=== PATIENT | female | born 1990 | race American Indian/Alaskan Native ===

== ENCOUNTER 2017-08-15 17:51 | Emergency (ER) | payer OTHER ==
[2017-08-15 19:09] LABS: Basophils % (Auto) 0.3 % (0.0-1.8); Eosinophils % (Auto) 0.1 % (0.0-4.3); Hematocrit 35.3 % (30.3-42.9); Hemoglobin 11.3 gm/dl (10.1-14.3); Lymphocytes # (Auto) 1.7 K/mm3 (1.2-5.4); Lymphocytes % (Auto) 18.4 % (13.4-35.0); Mean Corpuscular HGB Conc 32 % (30-34); Mean Corpuscular Hemoglobin 26 pg (28-32); Mean Corpuscular Volume 81 fl (79-97); Monocytes # (Auto) 0.8 K/mm3 (0.0-0.8); Monocytes % (Auto) 8.9 % (0.0-7.3); Platelet Count 319 K/mm3 (140-440); Red Blood Count 4.35 M/mm3 (3.65-5.03); Red Cell Distribution Width 15.9 % (13.2-15.2)
[2017-08-15 19:37] LABS: BUN/Creatinine Ratio 8; Blood Urea Nitrogen 4 mg/dL (7-17); Calcium 9.5 mg/dL (8.4-10.2); Hemolysis Index 3
--- NOTE | 2017-08-15 20:13 | Emergency Department Report ---
HPI - General Chief Complaint: Skin/Abscess/Foreign Body Time Seen by Provider: 08/15/17 19:59 - HPI HPI: Patient reports that she had 3 tooth pulled from her right lower back tooth. She reports that she had facial swelling right jaw. She says swelling is going down into her neck. Patient denies any difficulty with swallowing, any wheezing , stridor is there or throat pain. Her pain is another 10 to right facial area. She said is throbbing. She has not called at approximately she said that they're not open on the weekend. Patient says she took antibiotic before she had a procedure and she had no swelling before procedure. She said postprocedure she was placed on amoxicillin and hydrocodone which she brought to the hospital with her. She said the pain is getting worse and swelling in his increase. ED Past Medical Hx - Past Medical History Previous Medical History?: Yes Additional medical history: Vaginal delivery x 2. anemia - Surgical History Past Surgical History?: Yes Hx Cholecystectomy: Yes Additional Surgical History: tonsillectomy. tubal ligation - Family History Family history: no significant - Social History Smoking Status: Never Smoker Substance Use Type: None - Medications Home Medications: Home Medications Medication Instructions Recorded Confirmed Last Taken Type Ciprofloxacin HCl [Ciprofloxacin 500 mg PO Q12HR #14 tab 05/20/15 Unknown Rx TAB] Clotrimazole [Jock Itch] 15 gm TP TID #1 tube 05/20/15 Unknown Rx Fluconazole [Diflucan TAB] 150 mg PO ONCE #1 tablet 05/20/15 Unknown Rx ED Review of Systems ROS: Stated complaint: FACIAL SWELLING Other details as noted in HPI Comment: All other systems reviewed and negative Constitutional: no symptoms reported ENT: dental pain, other (right facial swelling). denies: ear pain, throat pain , congestion Respiratory: no symptoms reported Cardiovascular: denies: chest pain, palpitations, dyspnea on exertion, orthopnea , edema, syncope, paroxysmal nocturnal dyspnea Gastrointestinal: denies: abdominal pain, nausea, vomiting, diarrhea, constipation, hematemesis, melena, hematochezia Musculoskeletal: denies: back pain, arthralgia Skin: denies: rash Neurological: denies: headache, abnormal gait, vertigo Physical Exam - Physical Exam Vital Signs: Vital Signs 08/15/17 17:58 Temperature 98.6 F Pulse Rate 100 H Respiratory 18 Rate Blood Pressure 135/73 O2 Sat by Pulse 98 Oximetry Vital Signs 08/15/17 08/15/17 17:58 23:39 Temperature 98.6 F 99.2 F Pulse Rate 100 H 96 H Respiratory 18 16 Rate Blood Pressure 135/73 Blood Pressure 122/67 [Left] O2 Sat by Pulse 98 100 Oximetry General: This is a 27-year-old female well-nourished well-developed in no acute distress. Physical Exam: Head: Normocephalic atraumatic Ears:BIateral TM pearly cornejo ,Tyshawn EAC with normal exam. No mastoid bone tenderness. Mouth: Moist, no pharyngeal erythema or exudate . No tonsillar erythema or exudate. UVULA midline and oral airways patent. No peritonsillar abscess. Positive abscess right lower tooth. Positive facial swelling. Swelling from mandible to right side of neck. Tender to palpate without erythema. No fluctuance. Miss into to right upper and lower with dental tenderness. Neck: Nontender to palpate, supple, normal range of motion. No adenopathy. No c- spine tenderness. Positive tenderness to right side of neck with swelling. Nose: Bilateral nasal mucosa normal. Maxillary and frontal sinuses non- tender to palpate. Eyes: Sclerae and conjunctiva without injection. Bilateral pupils equal and reactive to light. Bilateral lids are normal. Normal accommodation.BEOMI Lungs: Clear to auscultate bilaterally, no rhonchi wheezes or rales. Normal work of breathing and no chest wall tenderness Abdomen: Soft, nontender to palpate in all quadrants. No guarding or rebound tenderness. Positive bowel sounds in all quadrants CV: S1, S2. Regular rate and rhythm negative murmur. Capillary refill is less than 3 seconds Skin: Clean dry and intact, no rashes or lesions Psych: Normal mood and behavior ED Course Vital Signs 08/15/17 17:58 Temperature 98.6 F Pulse Rate 100 H Respiratory 18 Rate Blood Pressure 135/73 O2 Sat by Pulse 98 Oximetry Vital Signs 08/15/17 08/15/17 17:58 23:39 Temperature 98.6 F 99.2 F Pulse Rate 100 H 96 H Respiratory 18 16 Rate Blood Pressure 135/73 Blood Pressure 122/67 [Left] O2 Sat by Pulse 98 100 Oximetry - Reevaluation(s) Reevaluation #1: 08/16/17 00:27 Patient was given IV Dilaudid 0.5 mL and Zofran 4 mg IV for pain management. I spoke with Dr. Anthony who is the attending physician after CT scan of facial bones with IV contrast obtained and showed patient with abscess to right mandible area with fracture mandible. It was decided the patient will be transferred. I spoke with OMFS service at [facility] and Dr. Fine you ask agreed to accept patient. Patient awaiting ambulance to be transferred to [facility]. She is aware of transfer and agreed to be transferred. Reevaluation #2: 08/16/17 01:33 Patient is stable, pain is controlled. Oral airways patent and still awaiting in transfer to [facility] Reevaluation #3: 08/16/17 06:22 Patient remained stable and in no acute distress. Reevaluation #4: 08/16/17 07:09 Patient on route to [facility] via ambulance. ED Medical Decision Making - Lab Data Result diagrams: 08/15/17 18:52 08/15/17 18:52 Lab Results 08/15/17 08/15/17 08/15/17 Range/Units 18:52 18:52 18:52 WBC 9.2 (4.5-11.0) K/mm3 RBC 4.35 (3.65-5.03) M/mm3 Hgb 11.3 (10.1-14.3) gm/dl Hct 35.3 (30.3-42.9) % MCV 81 (79-97) fl MCH 26 L (28-32) pg MCHC 32 (30-34) % RDW 15.9 H (13.2-15.2) % Plt Count 319 (140-440) K/mm3 Lymph % (Auto) 18.4 (13.4-35.0) % Pine % (Auto) 8.9 H (0.0-7.3) % Eos % (Auto) 0.1 (0.0-4.3) % Baso % (Auto) 0.3 (0.0-1.8) % Lymph # 1.7 (1.2-5.4) K/mm3 Pine # 0.8 (0.0-0.8) K/mm3 Eos # 0.0 (0.0-0.4) K/mm3 Baso # 0.0 (0.0-0.1) K/mm3 Seg Neutrophils % 72.3 H (40.0-70.0) % Seg Neutrophils # 6.6 (1.8-7.7) K/mm3 Sodium 137 (137-145) mmol/L Potassium 3.9 (3.6-5.0) mmol/L Chloride 97.8 L (98-107) mmol/L Carbon Dioxide 24 (22-30) mmol/L Anion Gap 19 mmol/L BUN 4 L (7-17) mg/dL Creatinine 0.5 L (0.7-1.2) mg/dL Estimated GFR > 60 ml/min BUN/Creatinine Ratio 8 % Glucose 100 (65-100) mg/dL Calcium 9.5 (8.4-10.2) mg/dL HCG, Qual Negative (Negative) - Radiology Data Radiology results: report reviewed CT scan of facial bones with IV contrast revealed soft tissue swelling with collection containing air the right face consistent with abscess. Postoperative changes with resection of right sided teeth and fracturing of the right mandible. - Medical Decision Making ED course: Patient here reports that she had her tooth pulled a few days ago and she is having right facial swelling with swelling going inside her neck which is getting worse. She is on amoxicillin and hydrocodone. Patient said her dentist discloses that she could not reach them so she decided to come to the emergency room. Patient with very extensive swelling to right mandible area extending down to right neck. Her oral airways patent and she is not having any respiratory distress. Patient able to speak without any difficulties. I discussed this case with Dr. Anthony and she reviewed patient laboratory and CT scan of the facial bones with IV contrast shows abscess and fractured mandible status post multiple tooth extraction. CBC and chemistry within normal limits. test is negative. EMS to transfer to [facility] ED to ED transfer. I spoke with Dr. FINE who is [facility] service and he accepted patient. Also emergency physician at [facility] accepted patient. Patient is stable in no acute distress. She was given 0.5 mL of Dilaudid IV and Zofran 4 mg IV. Patient was also given clindamycin 600 mg IV. She is aware of her CT scan results. Patient updated on pads and she knows that she will be transferred to [facility] by ambulance for further evaluation and treatment. Patient received Dilaudid 0.5 mg IV, another Dilaudid 0.5 mg IV. After. The time patient requested more pain medication so she was given Percocet 5/325 2 tablets by mouth in emergency room. He'll awaiting EMS to transport patient to [facility] Critical care attestation.: If time is entered above; I have spent that time in minutes in the direct care of this critically ill patient, excluding procedure time. ED Disposition Clinical Impression: Oral abscess, Status post tooth extraction, Pain, dental Mandible fracture Qualifiers: Encounter type: initial encounter Fracture type: closed Mandible location: unspecified site of mandible Laterality: right Qualified Code(s): S02.609A - Fracture of mandible, unspecified, initial encounter for closed fracture Disposition: DC/TX-70 ANOTHER TYPE [facility]THCARE Is pt being admited?: No Does the pt Need Aspirin: No Condition: Stable Referrals: PRIMARY CARE, [Primary Care Provider] - 3-5 Days
[2017-08-15] MEDS ORDERED: CLEOCIN IV ONE (21:20)
--- NOTE | 2017-08-15 21:57 | Cat Scan Report ---
FINAL REPORT PROCEDURE: CT FACIAL BONES W CON TECHNIQUE: Computerized tomography of the facial bones and soft tissues with axial and coronal sections was performed from the cranial aspect of the frontal sinuses to the caudal portion of the mandible following the IV injection of iodinated nonionic contrast. HISTORY: post dental procedure swelling pain lt face COMPARISON: No prior studies are available for comparison. FINDINGS: Bones: There is postoperative change of mandible and maxilla with resection of numerous right-sided teeth. There is focal fracturing of the right mandible. Normal zygomatic arches. Normal nasal bone. Normal visualized orbits.. Paranasal sinuses: Mild mucosal thickening.. Soft tissues: Soft tissue swelling of the right face. There is 2.6 cm collection adjacent to the right mastoid air and extending inferiorly adjacent to the mandible consistent with abscess. Abnormal enhancement: None. Other: None. IMPRESSION: Soft tissue swelling with collection containing air the right face consistent with abscess. Postoperative changes with resection of right-sided teeth and fracturing of the right mandible
[2017-08-15] MEDS ORDERED: ZOFRAN IV ONE (23:16)
[2017-08-15] MEDS ORDERED: DILAUDID IV ONE (23:16)
[2017-08-16] MEDS ORDERED: PERCOCET 5/325 ONE (02:02)
[2017-08-16] MEDS ORDERED: PERCOCET 5/325 PO ONE (02:30)
[2017-08-16 07:28] VITALS: BP 128/64
== END 2017-08-16 07:29 | disposition other institution (70) ==
LOC: ED 17:51
DX: S02.601A Fracture of unspecified part of body of right mandible, initial encounter for closed fracture (principal); Z90.49 Acquired absence of other specified parts of digestive tract; Z90.89 Acquired absence of other organs; Z98.51 Tubal ligation status; X58.XXXA Exposure to other specified factors, initial encounter; Y93.89 Activity, other specified; Y92.89 Other specified places as the place of occurrence of the external cause; Y99.8 Other external cause status
CPT/HCPCS: 36415; 70487; 80048; 84703; 85025; 96374; 96375; 99284; J1170; J2405